=== PATIENT | male | born 1985 | race Caucasian/White ===

== ENCOUNTER 2016-05-24 03:05 | Inpatient (IN) | payer OTHER ==
[~2016-05-24] VITALS: Ht 175.3 cm; Wt 73.4 kg
[2016-05-24] VITALS (30 sets, daily range): BP systolic 78–164; BP diastolic 42–108; PULSE 75–130; TEMP 36.5–36.9; O2SAT 94–100; Ht 175.3 cm; Wt 73.4 kg
[~2016-05-24 03:05] MED LIST: CETI10TA84 PO; FLNIN; LEVO-459 PO; PRT40 PO; SALM50AE2 INH
[2016-05-24] MEDS ORDERED: SODIUM CHLORIDE 0.9% 1000ML 1,000 ML IV STA ×2 (03:17)
[2016-05-24] MEDS ORDERED: MAGNESIUM SULFATE 1GM / D5W 1 GM BAG IV STA (03:20)
[2016-05-24] MEDS ORDERED: MIDAZOLAM HCL 5 MG/ML 1 ML VIAL IV STA (03:20)
[2016-05-24] MEDS ORDERED: PROPOFOL IV EMULSION 10 MG/ML 100 ML VIAL IV ONE (03:26)
[2016-05-24 03:31] LABS: ISTAT CREATININE 1.5 mg/dl (0.6-1.3); ISTAT IONIZED CALCIUM 1.18 mmol/l (1.12-1.32)
--- NOTE | 2016-05-24 03:32 | EMERGENCY ROOM VISIT NOTE ---
History Report prepared by Trish: Mirta Antoine Under the Supervision of: Dr. Manisha Novoa D.O. First contact with patient: 03:07 Chief Complaint: RESPIRATORY DISTRESS Stated Complaint: RESPIRATORY History of Present Illness The patient is a 30 year old male who presents to the Emergency Room with complaints of respiratory distress starting ACCOUNTING GENERALIST. According to EMS the patient called for EMS assistance for himself and told EMS he has severe asthma and he was found to be alone in his apartment in [facility]. The patient informed the EMS personal that he was an asthmatic before becoming unresponsive. HPI limited due to unresponsive state. Source of History: EMS History Limited By: other (respiratory arrest) Onset: ACCOUNTING GENERALIST Position: other (respiratory) Review of Systems ROS limited due to unresponsive state. Past Medical & Surgical Medical Problems: (1) Acute respiratory failure requiring reintubation Family History No pertinent family history stated. Social History Housing Status: lives alone Current/Historical Medications Unable to Obtain Active Prescriptions or Reported Meds Allergies Coded Allergies: Unobtainable (Verified Allergy, Unknown, ., 05/24/16) Physical Exam Vital Signs Date Time Temp Pulse Resp B/P Pulse Ox O2 Delivery O2 Flow Rate FiO2 05/24/16 04:38 180/134 05/24/16 04:30 123 100 05/24/16 04:28 187/116 05/24/16 04:20 130 100 05/24/16 04:18 168/127 05/24/16 04:14 163/124 05/24/16 04:10 124 100 05/24/16 04:05 117 18 100 Mechanical Ventilator 05/24/16 04:03 60 05/24/16 04:02 120/110 05/24/16 03:59 05/24/16 03:55 114 18 99 Mechanical Ventilator 05/24/16 03:48 105/75 05/24/16 03:45 118 18 99 Mechanical Ventilator 05/24/16 03:44 115/79 05/24/16 03:39 136/100 05/24/16 03:35 119 97 05/24/16 03:29 144/91 05/24/16 03:27 127/90 05/24/16 03:25 118 97 05/24/16 03:24 106 05/24/16 03:20 100 05/24/16 03:18 156/104 05/24/16 03:17 159/105 05/24/16 03:15 104 97 Mechanical Ventilator 05/24/16 03:11 64 05/24/16 03:09 95 05/24/16 03:07 174/117 05/24/16 03:06 37.1 Physical Exam General: Patient is in severe respiratory distress, unresponsive with audible wheezing. HEENT: Head - normocephalic and atraumatic Pupils are equal, round, and reactive to light. Extraocular eye muscles are intact, and sclera are anicteric. Nose - moist nasal mucosa without discharge. Mouth - moist buccal mucosa. Neck: Supple; no JVD, nuchal rigidity, cervical lymphadenopathy, or auscultated bruits. Heart: Regular rate and rhythm. There is a normal S1 and S2 with no murmurs, clicks, or gallops appreciated. Lungs: inspiratory and expiratory wheezing with very little air movement. Abdomen: Soft, completely nontender, nondistended, with good bowel sounds. There are no palpable pulsatile masses or hepatosplenomegaly. There is no guarding, rigidity, or rebound noted. Extremities: No evidence of cyanosis, clubbing, or edema. There are easily palpable peripheral pulses. Skin: warm and diaphoretic with good turgor and no rashes. Medical Decision & Procedures ER Provider Diagnostic Interpretation: Chest x-ray: Lung alvarado appear clear. Endotracheal tube is 3 cm above the jay. There is no cardiomegaly. Laboratory Results 05/24/16 03:10 Red Blood Count 5.25, Mean Corpuscular Volume 95.2, Mean Corpuscular Hemoglobin 32.8, Mean Corpuscular Hemoglobin Concent 34.4, Mean Platelet Volume 10.2, Neutrophils (%) (Auto) 35.8, Lymphocytes (%) (Auto) 34.2, Monocytes (%) (Auto) 6.7, Eosinophils (%) (Auto) 22.2, Basophils (%) (Auto) 0.8, Neutrophils # (Auto ) 5.92, Lymphocytes # (Auto) 5.65, Monocytes # (Auto) 1.10, Eosinophils # (Auto ) 3.68, Basophils # (Auto) 0.14 05/24/16 03:10 Test 05/24/16 00:00 05/24/16 03:10 05/24/16 03:14 05/24/16 03:15 Influenza Type A Antigen Neg for Influ A (NEG) Influenza Type B Antigen Neg for Influ B (NEG) White Blood Count 16.54 K/uL (4.8-10.8) Red Blood Count 5.25 M/uL (4.7-6.1) Hemoglobin 17.2 g/dL (14.0-18.0) Hematocrit 50.0 % (42-52) Mean Corpuscular Volume 95.2 fL (80-100) Mean Corpuscular Hemoglobin 32.8 pg (25-34) Mean Corpuscular Hemoglobin Concent 34.4 g/dl (32-36) Platelet Count 401 K/uL (130-400) Mean Platelet Volume 10.2 fL (7.4-10.4) Neutrophils (%) (Auto) 35.8 % Lymphocytes (%) (Auto) 34.2 % Monocytes (%) (Auto) 6.7 % Eosinophils (%) (Auto) 22.2 % Basophils (%) (Auto) 0.8 % Neutrophils # (Auto) 5.92 K/uL (1.4-6.5) Lymphocytes # (Auto) 5.65 K/uL (1.2-3.4) Monocytes # (Auto) 1.10 K/uL (0.11-0.59) Eosinophils # (Auto) 3.68 K/uL (0-0.5) Basophils # (Auto) 0.14 K/uL (0-0.2) RDW Standard Deviation 44.4 fL (36.4-46.3) RDW Coefficient of Variation 12.9 % (11.5-14.5) Immature Granulocyte % (Auto) 0.3 % Immature Granulocyte # (Auto) 0.05 K/uL (0.00-0.02) Spherocytes OCCASIONAL Est Creatinine Clear Calc Drug Dose 60.9 ml/min Estimated GFR () 60.9 Estimated GFR (Non- 52.6 BUN/Creatinine Ratio 7.2 (10-20) Calcium Level 8.0 mg/dl (8.5-10.1) Total Bilirubin 0.3 mg/dl (0.2-1) Direct Bilirubin mg/dl (0-0.2) Aspartate Amino Transf (AST/SGOT) 30 U/L (15-37) Alanine Aminotransferase (ALT/SGPT) 37 U/L (12-78) Alkaline Phosphatase 60 U/L (45-117) Total Creatine Kinase 345 U/L (39-308) Total Protein 6.0 gm/dl (6.4-8.2) Albumin 3.5 gm/dl (3.4-5.0) Chemistry Specimen Hemolysis Bedside Hemoglobin 17.0 g/dl (14.0-18.0) Bedside Hematocrit 50 % (42-52) Bedside Sodium 143 mEq/L (135-144) Bedside Potassium 4.1 mEq/L (3.3-5.0) Bedside Chloride 100 mEq/L (101-112) Bedside Total CO2 30 mEq/l (24-31) Anion Gap 18.0 mmol/L (16-25) Bedside Blood Urea Nitrogen 15 mg/dl (7-18) Bedside Creatinine 1.5 mg/dl (0.6-1.3) Bedside Glucose (other) 256 mg/dl (70-99) Bedside Ionized Calcium (Amanda) 1.18 mmol/l (1.12-1.32) Arterial Blood pH 7.03 (7.35-7.45) Arterial Blood Partial Pressure CO2 112 mmHg (35-46) Arterial Blood Partial Pressure O2 224 mmHg (80-95) Arterial Blood HCO3 29 mmol/L (19-24) Arterial Blood Oxygen Saturation 99.0 % (90-95) Arterial Blood Base Excess -5.6 mEq/L (-9-1.8) Arterial Blood Gas Delivery Zackery Test POS (POS) Test 05/24/16 03:25 Urine Color YELLOW Urine Appearance CLEAR (CLEAR) Urine pH 5.5 (4.5-7.5) Urine Specific [place] 1.013 (1.000-1.030) Urine Protein 1+ (NEG) Urine Glucose (UA) 2+ (NEG) Urine Ketones NEG (NEG) Urine Occult Blood 1+ (NEG) Urine Nitrite NEG (NEG) Urine Bilirubin NEG (NEG) Urine Urobilinogen NEG (NEG) Urine Leukocyte Esterase NEG (NEG) Urine WBC (Auto) /hpf (0-5) Urine RBC (Auto) /hpf (0-4) Urine Hyaline Casts (Auto) 1-5 /lpf (0-5) Urine Epithelial Cells (Auto) /lpf (0-5) Urine Bacteria (Auto) (NEG) Urine RBC 5-10 /hpf (0-4) Urine WBC 0 /hpf (0-5) Urine Epithelial Cells 0-5 /lpf (0-5) Urine Bacteria NEG (NEG) Urine Opiates Screen NEG (NEG) Urine Methadone, Qualitative NEG (NEG) Urine Barbiturates NEG (NEG) Urine Phencyclidine (PCP) Level NEG (NEG) Ur Amphetamine/Methamphetamine NEG (NEG) MDMA (Ecstasy) Screen NEG (NEG) Urine Benzodiazepines Screen POS (NEG) Urine Cocaine Metabolite NEG (NEG) Urine Marijuana (THC) POS (NEG) Laboratory results per my review. Medications Administered Medications (Trade) Dose Ordered Sig/Marissa Route Start Time Stop Time Status Last Admin Dose Admin Sodium Chloride 1,000 ml @ 250 mls/hr Q4H STAT IV 05/24/16 03:17 05/24/16 06:10 DC 05/24/16 03:30 250 MLS/HR Sodium Chloride (Nss 1000ml) 1,000 ml @ 999 mls/hr Q1H1M STAT IV 05/24/16 03:17 05/24/16 04:17 DC 05/24/16 03:30 999 MLS/HR Magnesium Sulfate (Magnesium Sulfate) 2 gm NOW STAT IV 05/24/16 03:20 05/24/16 03:21 DC 05/24/16 03:15 2 GM Midazolam HCl (Versed Inj) 5 mg NOW STAT IV 05/24/16 03:20 05/24/16 03:21 DC 05/24/16 03:14 5 MG Propofol (Diprivan IV 100ML VIAL) 1 dose STK-MED ONCE IV 05/24/16 03:26 05/24/16 03:27 DC 05/24/16 03:27 1 DOSE Procedure Endotracheal Intubation Indication respiratory failure. The patient was on 100% oxygen via BVM prior to the procedure. Suction, airway equipment, RSI drugs, respiratory equipment, and appropriate personnel were prepared prior to the initiation of the procedure. A time out was taken. Induction was performed with 20 ml etomidate and 140 succs. After observing the clinical benefit of the medications, the airway was easily visualized utilizing a GlideScope. A 7.5 size ETT tube was placed atraumatically to 23 cm using standard technique. The cuff inflated without signs of malfunction. There were bilateral breath sounds, positive colormetric change, no gastric sounds, and post procedure pulse oximetry was 98%. Post intubation sedation was administered using 5 mg versed. There were no complications. Medications Administered: Epi 1:100,000 Sodium Chloride Versed Inj Magnesium Sulfate Propofol Vecuronium ED Course 0306: Past medical records reviewed. The patient had never been here before. The patient was evaluated in room A1. A complete history and physical exam was performed. A second IV lock was initiated. Intubation equipment was prepared and RSI drugs were obtained. The patient was given etomidate and succinylcholine to facilitate intubation. X-ray was obtained in the room and visualized the endotracheal tube as 3 cm above the jay and then it was advanced 1 cm. 0317: Ordered Sodium Chloride 1,000 ml @ 999 mls/hr IV, Sodium Chloride 1,000 ml @ 250 mls/hr IV. One mL of Epi 1:100,000 was given IV. 0320: Ordered Versed Inj 5mg IV, Magnesium Sulfate 2 gm IV the patient was given a second mL of Epi 1:100,000. A Mora catheter was placed and an OG tube was placed. 0326: Ordered Diprivan IV 100 ml Vital 1 dose IV. A third dose of Epi 100,000 IV was given 0342: I reevaluated the patient and he is starting to wake up on a propofol drip. The patient was given an additional 5 mg of IV Versed. The propofol drip was increased. 0348: I discussed the case with Dr. Norris regarding the treatment plan of the patient. The patient was still attempting to pull at the tube. He was given 10 mg of IV vecuronium. 0405: the patient was much more comfortable on the ventilator. Peak airway pressure was approximately 26 0420: I discussed the case with Dr. Boyd [facility] He agreed to evaluate the patient for further management and care. 0445: I reevaluated the patient and he was hemodynamically stable. Medical Decision The patient is a 30 year old male who presents to the ED with respiratory distress. Differential diagnosis includes pneumonia, bronchitis, asthma exacerbation, hypercarbic respiratory failure, pneumothorax. Lab: Glucose 256 White count 16.5 Hemoglobin 17.2 Hematocrit 50 Platelet count 401 BUN 12 Creatine 1.7 LFTs 264 Urine 1+ blood with 5-10 red blood cells Urine Tox positive for benzodiazepine and marijuana Influenza negative This is a 30-year-old male patient with a history of asthma who presents to the emergency department and respiratory failure. The patient had received DuoNeb treatments and IV solu Medrol from EMS. He became unresponsive and endotracheal intubation was attempted by the performance consultant with etomidate. This was unsuccessful as the patient was clenched down. The patient's O2 saturation for EMS was 81% with an end title CO2 of 84. Upon arrival in the emergency department, the patient had obvious respiratory failure. We were able to maintain O2 saturations of 98% with a [id number]. The patient was intubated and continued to receive DuoNeb through the in-line circuit. The patient received 2 g of IV magnesium. Once on the ventilator, the ABG was obtained and revealed severe hypercarbic respiratory failure with a pH of 7.02 and a PCO2 of 112. At that time, the patient's rate on ventilator was increased and FiO2 was decreased to 60%. The patient remains in stable. He was not adequately sedated with IV propofol initially. He had to receive IV Versed and IV vecuronium and the propofol rate was increased. I discussed the case with the national sales associate and Dr. Olivas. We were not able to identify any family members or friends to contact. Consults Time Called: 033 Consulting Physician: Dr. Norris Returned Call: [phone] I discussed the case with Dr. Norris regarding the treatment plan of the patient. Additional Consults: Time Called: 033 Consulted Physician: Dr. Boyd [facility] Returned Call: [phone] Additional Comments: I discussed the case with Dr. Oliver [facility] Hospitalist. He agreed to evaluate the patient for further management and care. Impression Primary Impression: Respiratory failure Additional Impression: Status asthmaticus Critical Care I have personally spent greater than 90 minutes of critical care time in the direct management of this patient. This includes bedside care, interpretation of diagnostic studies, and testing, discussion with consultants, patient, and family members, and other required patient management activities. This 90 minutes is in excess of all separately billable procedures. Scribe Attestation The scribe's documentation has been prepared under my direction and personally reviewed by me in its entirety. I confirm that the note above accurately reflects all work, treatment, procedures, and medical decision making performed by me. Departure Information Dispostion Being Evaluated By Hospitalist Prescriptions Unable to Obtain Active Prescriptions or Reported Meds
[2016-05-24 03:35] LABS: MEAN CELL VOLUME 95.2 fL (80-100); MEAN CORPUSCULAR HEMOGLOBIN 32.8 pg (25-34); MEAN CORPUSCULAR HGB CONC 34.4 g/dl (32-36); MEAN PLATELET VOLUME 10.2 fL (7.4-10.4); PLATELET COUNT 401 K/uL (130-400); RED BLOOD COUNT 5.25 M/uL (4.7-6.1); WHITE BLOOD COUNT 16.54 K/uL (4.8-10.8)
[2016-05-24 03:40] LABS: ARTERIAL BLOOD GAS BASE EXCESS -5.6 mEq/L (-9-1.8); ARTERIAL BLOOD GAS HCO3 29 mmol/L (19-24); ARTERIAL BLOOD GAS PO2 224 mmHg (80-95); ARTERIAL BLOOD GAS pH 7.03 (7.35-7.45)
[2016-05-24 03:53] LABS: ALLEN TEST POS (POS)
[2016-05-24 04:07] LABS: ALKALINE PHOSPHATASE 60 U/L (45-117); ALT/SGPT 37 U/L (12-78); BLOOD UREA NITROGEN 12 mg/dl (7-18); BUN/CREATININE RATIO 7.2 (10-20); CARBON DIOXIDE 30 mmol/L (21-32); CHLORIDE 105 mmol/L (98-107); GLUCOSE 264 mg/dl (70-99); SODIUM 144 mmol/L (136-145)
[2016-05-24 04:18] LABS: BASO % 0.8 %; BASO ABS # 0.14 K/uL (0-0.2); COMPLETE YES; EOS % 22.2 %; IG% 0.3 %; LYMPH % 34.2 %; LYMPH ABS # 5.65 K/uL (1.2-3.4); MONO % 6.7 %; NEUT % 35.8 %; SPHEROCYTE OCCASIONAL
[2016-05-24 04:39] LABS: AST/SGOT 30 U/L (15-37)
[2016-05-24 04:43] LABS: URINE APPEARANCE CLEAR (CLEAR); URINE BILIRUBIN NEG (NEG); URINE COLOR YELLOW; URINE NITRITE NEG (NEG); URINE PH 5.5 (4.5-7.5); URINE SPECIFIC GRAVITY 1.013 (1.000-1.030); UROBILINOGEN NEG (NEG)
[2016-05-24 04:45] LABS: MANUAL MICROSCOPIC REQUIRED? YES; REVIEW REQ? NO
[2016-05-24] MEDS ORDERED: MIDAZOLAM 125MG/250ML D5W 250 ML IV PRN (04:49)
[2016-05-24] MEDS ORDERED: NSS + 20MEQ KCL 1000ML 1,000 ML IV SCH (04:49)
[2016-05-24] MEDS ORDERED: PROPOFOL IV EMULSION 10 MG/ML 100 ML VIAL IV STA (04:49)
[2016-05-24 04:57] LABS: URINE BACTERIA NEG (NEG); URINE WBC 0 /hpf (0-5)
[2016-05-24 04:59] LABS: BENZODIAZEPINE, URINE POS (NEG); COCAINE,URINE NEG (NEG); PHENCYCLIDINE, URINE NEG (NEG)
[2016-05-24] MEDS ORDERED: METHYLPREDNISOLONE IV 40 MG in SYRINGE 0 ML IV SCH (05:00)
[2016-05-24] MEDS ORDERED: LORAZEPAM 2 MG/ML 1 ML VIAL IV PRN (05:00)
[2016-05-24] MEDS ORDERED: MoRPHine SULFATE 4 MG/ML 1 ML CARP\\VIAL IV PRN (05:00)
[2016-05-24] MEDS ORDERED: METHYLPREDNISOLONE IV 60 MG in SYRINGE 0 ML IV SCH ×2 (05:00→06:30)
[2016-05-24] MEDS ORDERED: MoRPHine SULFATE 2 MG/ML CARP IV PRN (05:00)
[2016-05-24] MEDS ORDERED: PREMIXED IN D5W 100 ML IV SCH (05:00)
[2016-05-24] MEDS ORDERED: MIDAZOLAM 125MG/250ML D5W IV ONE (05:06)
[2016-05-24] MEDS ORDERED: ONDANSETRON INJ 2 MG/ML 2 ML VIAL IV PRN (05:15)
[2016-05-24] MEDS ORDERED: GLUCOSE 10 TABS/TUBE PO PRN (05:15)
[2016-05-24] MEDS ORDERED: LEVALBUTEROL 1.25MG/0.5ML NEB INH PRN (05:15)
[2016-05-24] MEDS ORDERED: GLUCOSE 40% GEL 15 GM TUBE PO PRN (05:15)
[2016-05-24] MEDS ORDERED: DEXTROSE 50% 50 ML SYR IV PRN (05:15)
[2016-05-24] MEDS ORDERED: IPRATROPIUM BROMIDE NEB SOLN 0.02% 2.5 ML VIAL INH PRN (05:15)
[2016-05-24] MEDS ORDERED: GLUCAGON FOR INJ 1 MG VIAL SQ PRN (05:15)
[2016-05-24] MEDS ORDERED: FENTANYL CITRATE INJ 50 MCG/1 ML 2 ML VIAL ONE (05:24)
[2016-05-24] MEDS ORDERED: [UNRECOGNIZED DRUG - OTHER] IV STA (05:24)
[2016-05-24] MEDS ORDERED: DRIP IV STA (05:24)
[2016-05-24] MEDS ORDERED: FENTANYL 1250MCG/250ML NSS 250 ML IV SCH (05:30)
[2016-05-24 06:04] LABS: ISTAT ALLEN TEST Pass; ISTAT ARTERIAL BLOOD GAS HCO3 27 meq/L (19-24); ISTAT ARTERIAL BLOOD GAS PCO2 59 mmHg (35-46); ISTAT ARTERIAL BLOOD GAS PO2 197 mmHg (80-95); ISTAT ARTERIAL BLOOD GAS pH 7.25 (7.35-7.45); ISTAT CARBON DIOXIDE 28 mEq/l (24-31); ISTAT DELIVERY SYSTEM Ventilator; ISTAT FIO2 60 %; ISTAT PEEP 5; ISTAT RATE 14; ISTAT SITE R Radial; VE 8; Vt 500
[2016-05-24] MEDS ORDERED: NSS IV PRN (06:15)
[2016-05-24] MEDS ORDERED: VECURONIUM BROMIDE IV PRN (06:15)
[2016-05-24] MEDS ORDERED: VECURONIUM BROMIDE IV ONE ×2 (06:15→10:15)
[2016-05-24] MEDS ORDERED: PATIENT'S ALLERGY INFO NEEDS ENTERED SCH ×2 (06:15→08:00)
--- NOTE | 2016-05-24 06:19 | History and Physical ---
History & Physical Date & Time of Service: May 24, 2016 at 05:58 Chief Complaint: Respiratory Primary Care Physician: No Doctor, Assigned History of Present Illness Source: patient, EMS The patient is a 30-year-old male who presents emergency department with respiratory distress that began prior to arrival. EMS reports the patient called for assistance himself, told EMS he has severe asthma before he became unresponsive when found alone in his apartment in [facility] His history of present illness is severely limited due to his unresponsive state, and was intubated in the emergency department Social History Smoking Status: Unknown if Ever Smoked Smokeless Tobacco Use: No Drug Use: marijuana Marital Status: single Housing status: lives alone Home Medications Unable to Obtain Active Prescriptions or Reported Meds Review of Systems His review of systems is not able to be done due to unresponsive state and intubation. Physical Exam Vital Signs Date Time Temp Pulse Resp B/P Pulse Ox O2 Delivery O2 Flow Rate FiO2 05/24/16 04:49 37.1 124 18 180/134 99 05/24/16 04:40 124 18 99 Mechanical Ventilator 60 05/24/16 04:38 180/134 05/24/16 04:30 123 100 05/24/16 04:28 187/116 05/24/16 04:20 130 100 05/24/16 04:18 168/127 05/24/16 04:14 163/124 05/24/16 04:10 124 100 05/24/16 04:05 117 18 100 Mechanical Ventilator 05/24/16 04:03 60 05/24/16 04:02 120/110 05/24/16 03:59 05/24/16 03:55 114 18 99 Mechanical Ventilator 05/24/16 03:48 105/75 05/24/16 03:45 118 18 99 Mechanical Ventilator 05/24/16 03:44 115/79 05/24/16 03:39 136/100 05/24/16 03:35 119 97 05/24/16 03:29 144/91 05/24/16 03:27 127/90 05/24/16 03:25 118 97 05/24/16 03:24 106 05/24/16 03:20 100 05/24/16 03:18 156/104 05/24/16 03:17 159/105 05/24/16 03:15 104 97 Mechanical Ventilator 05/24/16 03:11 64 05/24/16 03:09 95 05/24/16 03:07 174/117 05/24/16 03:06 37.1 The patient is sedated, intubated and paralyzed. HEENT--PERRL, mucous membranes and oropharynx dry. Neck--supple, no JVD or bruits, thyroid normal, trachea midline, no adenopathy. Heart--normal S1 and S2, tachycardic post epinephrine, no extra beats, no murmurs, rubs or gallops. Lungs--clear bilaterally. Abdomen--normal bowel sounds and soft, nondistended, no hernias or masses, no organomegaly. Extremities--no cyanosis, clubbing or edema. There are good distal pulses b/l. Dermatologic--normal skin turgor, normal color, warm and dry, no abnormal lymph nodes, no rash. Neurologic--deferred due to intubation, sedation and paralysis. Rheumatologic--deferred Psychiatric--deferred Diagnostics Laboratory Results Results Past 24 Hours Test 05/24/16 00:00 05/24/16 03:10 05/24/16 03:14 05/24/16 03:15 Range/Units Influenza Type A Antigen Neg for Influ A NEG Influenza Type B Antigen Neg for Influ B NEG White Blood Count 16.54 4.8-10.8 K/uL Red Blood Count 5.25 4.7-6.1 M/uL Hemoglobin 17.2 14.0-18.0 g/dL Hematocrit 50.0 42-52 % Mean Corpuscular Volume 95.2 80-100 fL Mean Corpuscular Hemoglobin 32.8 25-34 pg Mean Corpuscular Hemoglobin Concent 34.4 32-36 g/dl Platelet Count 401 130-400 K/uL Mean Platelet Volume 10.2 7.4-10.4 fL Neutrophils (%) (Auto) 35.8 % Lymphocytes (%) (Auto) 34.2 % Monocytes (%) (Auto) 6.7 % Eosinophils (%) (Auto) 22.2 % Basophils (%) (Auto) 0.8 % Neutrophils # (Auto) 5.92 1.4-6.5 K/uL Lymphocytes # (Auto) 5.65 1.2-3.4 K/uL Monocytes # (Auto) 1.10 0.11-0.59 K/uL Eosinophils # (Auto) 3.68 0-0.5 K/uL Basophils # (Auto) 0.14 0-0.2 K/uL RDW Standard Deviation 44.4 36.4-46.3 fL RDW Coefficient of Variation 12.9 11.5-14.5 % Immature Granulocyte % (Auto) 0.3 % Immature Granulocyte # (Auto) 0.05 0.00-0.02 K/uL Spherocytes OCCASIONAL Sodium Level 144 136-145 mmol/L Potassium Level 4.0 3.5-5.1 mmol/L Chloride Level 105 98-107 mmol/L Carbon Dioxide Level 30 21-32 mmol/L Anion Gap 9.0 18.0 16-25 mmol/L Blood Urea Nitrogen 12 7-18 mg/dl Creatinine 1.70 0.60-1.40 mg/dl Est Creatinine Clear Calc Drug Dose 60.9 ml/min Estimated GFR () 60.9 Estimated GFR (Non- 52.6 BUN/Creatinine Ratio 7.2 10-20 Random Glucose 264 70-99 mg/dl Calcium Level 8.0 8.5-10.1 mg/dl Total Bilirubin 0.3 0.2-1 mg/dl Direct Bilirubin 0-0.2 mg/dl Aspartate Amino Transf (AST/SGOT) 30 15-37 U/L Alanine Aminotransferase (ALT/SGPT) 37 12-78 U/L Alkaline Phosphatase 60 45-117 U/L Total Creatine Kinase 345 39-308 U/L Total Protein 6.0 6.4-8.2 gm/dl Albumin 3.5 3.4-5.0 gm/dl Chemistry Specimen Hemolysis Bedside Hemoglobin 17.0 14.0-18.0 g/dl Bedside Hematocrit 50 42-52 % Bedside Sodium 143 135-144 mEq/L Bedside Potassium 4.1 3.3-5.0 mEq/L Bedside Chloride 100 101-112 mEq/L Bedside Total CO2 30 24-31 mEq/l Bedside Blood Urea Nitrogen 15 7-18 mg/dl Bedside Creatinine 1.5 0.6-1.3 mg/dl Bedside Glucose (other) 256 70-99 mg/dl Bedside Ionized Calcium (Amanda) 1.18 1.12-1.32 mmol/l Arterial Blood pH 7.03 7.35-7.45 Arterial Blood Partial Pressure CO2 112 35-46 mmHg Arterial Blood Partial Pressure O2 224 80-95 mmHg Arterial Blood HCO3 29 19-24 mmol/L Arterial Blood Oxygen Saturation 99.0 90-95 % Arterial Blood Base Excess -5.6 -9-1.8 mEq/L Arterial Blood Gas Delivery Zackery Test POS POS Test 05/24/16 03:25 Range/Units Urine Color YELLOW Urine Appearance CLEAR CLEAR Urine pH 5.5 4.5-7.5 Urine Specific [place] 1.013 1.000-1.030 Urine Protein 1+ NEG Urine Glucose (UA) 2+ NEG Urine Ketones NEG NEG Urine Occult Blood 1+ NEG Urine Nitrite NEG NEG Urine Bilirubin NEG NEG Urine Urobilinogen NEG NEG Urine Leukocyte Esterase NEG NEG Urine WBC (Auto) 0-5 /hpf Urine RBC (Auto) 0-4 /hpf Urine Hyaline Casts (Auto) 1-5 0-5 /lpf Urine Epithelial Cells (Auto) 0-5 /lpf Urine Bacteria (Auto) NEG Urine RBC 5-10 0-4 /hpf Urine WBC 0 0-5 /hpf Urine Epithelial Cells 0-5 0-5 /lpf Urine Bacteria NEG NEG Urine Opiates Screen NEG NEG Urine Methadone, Qualitative NEG NEG Urine Barbiturates NEG NEG Urine Phencyclidine (PCP) Level NEG NEG Ur Amphetamine/Methamphetamine NEG NEG MDMA (Ecstasy) Screen NEG NEG Urine Benzodiazepines Screen POS NEG Urine Cocaine Metabolite NEG NEG Urine Marijuana (THC) POS NEG Microbiology Results 05/24/16 Blood Culture, Received Pending 05/24/16 Blood Culture, Received Pending Impression Assessment and Plan Acute respiratory failure with hypercarbia requiring intubation--the patient will be admitted to the ICU. Present vent settings are respiratory rate 14, tidal volume 500, FiO2 60%, and PEEP 5. Initial ABG showed pH of 7.02, PCO2 112, and PO2 242, with repeat pending on the above settings. Patient was given Solu-Medrol 125 mg IV in the field, and was given 3 rounds of epinephrine in the emergency department for acute asthma attack. Blood pressure was initially 80/40, but after epinephrine, his pulse has been in the low 130s, and blood pressure is 150s over low 100s. He was started on propofol infusion for sedation and vecuronium for paralysis while in the ED. The propofol infusion will be continued, Versed infusion was added. The patient had still become overactive, so in discussion with Dr. Norris, the bench precision assembler, vecuronium infusion was begun, and fentanyl infusion at 100 mcg per hour after a 100 mcg bolus as well. The patient will also be placed on Solu-Medrol 60 mg IV every 6 hours, ceftriaxone 1 g IV daily, levofloxacin 500 mg IV every 24 hours, and Xopenex with Atrovent nebulizers every 6 hours while awake every 2 hours when necessary. Renal insufficiency--creatinine on admission labs was 1.7. The patient has had received 1 L of normal saline in the emergency department and this will be continued at 150 ML's per hour. I've added a CK to laboratories to assess for possible rhabdomyolysis. Hyperglycemia--unknown if the patient is diabetic, this may be secondary to the Solu-Medrol he got en route. He'll be placed on Accu-Cheks before meals and at bedtime with NovoLog coverage, and may require long-acting Lantus insulin. Level of Care Critical Care Advanced Directives Existing Advance Directive: No Existing Living Will: No Existing Power of Laborer Landscape: No Resuscitation Status FULL RESUSCITATION VTE Prophylaxis VTE Risk Assessment Done? Y/N: Yes Risk Level: Moderate Given or contraindicated: Enoxaparin (Lovenox)SQ, SCD's
[2016-05-24] MEDS: SODIUM CHLORIDE 0.9% 1000ML 1,000 ML IV SCH ×3 (06:23→20:49)
[2016-05-24] MEDS ORDERED: INSULIN ASPART 100 UNITS/ML 3 ML PEN SC SCH (06:45)
[2016-05-24] MEDS ORDERED: NURSING VERBAL MED ORDER ONE ×2 (07:15→09:15)
[2016-05-24] MEDS: INSULIN ASPART 100 UNITS/ML 3 ML PEN SC SCH ×4 (07:29→23:21)
[2016-05-24] MEDS: CEFTRIAXONE SOD INJ 1 GM in DEXTROSE 5% ADD-VANTAGE 50ML 50 ML IV SCH (07:30)
[2016-05-24] MEDS ORDERED: VECURONIUM BROMIDE 10 MG VIAL IV ONE (08:02)
[2016-05-24] MEDS ORDERED: ETOMIDATE 2 MG/ML 20 ML VIAL IV ONE (08:02)
[2016-05-24] MEDS ORDERED: SUCCINYLCHOLINE CHLORIDE 20 MG/ML 10 ML VIAL IV ONE (08:02)
[2016-05-24] MEDS ORDERED: MIDAZOLAM HCL 5 MG/ML 1 ML VIAL IV ONE (08:02)
[2016-05-24] MEDS ORDERED: PROPOFOL IV EMULSION 10 MG/ML 100 ML VIAL IV PRN (08:30)
[2016-05-24] MEDS ORDERED: LORAZEPAM 2 MG/ML 1 ML VIAL ONE (08:35)
[2016-05-24] MEDS ORDERED: PANTOprazole INJ 40 MG in SYRINGE 0 ML IV ONE (08:45)
--- NOTE | 2016-05-24 08:55 | DIAGNOSTIC IMAGING REPORT ---
SINGLE VIEW CHEST CLINICAL HISTORY: Respiratory failure and intubation. FINDINGS: An AP, portable, supine chest radiograph is obtained. No prior studies are available for comparison at the time of dictation. The examination is degraded by portable technique, apical lordotic positioning, and motion artifact. An endotracheal tube has been placed. The tip of the catheter projects 5.5 cm above the jay. The cardiomediastinal silhouette is unremarkable. The lungs appear hyperinflated. There is nonspecific interstitial thickening. No airspace consolidation, pleural effusion, or pneumothorax is seen. There is a healed left posterior rib fracture. IMPRESSION: 1. An endotracheal tube has been placed. The tip of the catheter projects 5.5 cm above the jay. 2. The lungs appear clear. Electronically signed by: Willy Skelton M.D. 05/24/2016 8:53 AM
[2016-05-24] MEDS ORDERED: PANTOprazole INJ 40 MG in SYRINGE 0 ML IV SCH ×3 (09:00→21:00)
[2016-05-24] MEDS ORDERED: IPRATROPIUM BROMIDE NEB SOLN 0.02% 2.5 ML VIAL INH SCH (09:00)
[2016-05-24] MEDS ORDERED: LEVALBUTEROL/IPRATROPIUM NEB INH SCH (09:00)
[2016-05-24] MEDS ORDERED: LEVALBUTEROL 1.25MG/0.5ML NEB INH SCH (09:00)
[2016-05-24 09:20] LABS: ISTAT ALLEN TEST Pass; ISTAT ARTERIAL BLOOD GAS HCO3 24 meq/L (19-24); ISTAT ARTERIAL BLOOD GAS PCO2 52 mmHg (35-46); ISTAT ARTERIAL BLOOD GAS PO2 237 mmHg (80-95); ISTAT ARTERIAL BLOOD GAS pH 7.27 (7.35-7.45); ISTAT CARBON DIOXIDE 25 mEq/l (24-31); ISTAT DELIVERY SYSTEM Ventilator; ISTAT FIO2 60 %; ISTAT PEEP 5; ISTAT RATE 14; ISTAT SITE R Radial; Vt 500
[2016-05-24] MEDS ORDERED: LABETALOL HCL IV 5 MG/ML 20ML IV PRN (09:30)
[2016-05-24 09:51] LABS: PROTHROMBIN TIME (PATIENT) 10.7 SECONDS (9.0-12.0)
[2016-05-24 09:53] LABS: BUN/CREATININE RATIO 8.6 (10-20); CALCIUM 7.6 mg/dl (8.5-10.1); CREATININE 1.6 mg/dl (0.60-1.40); MAGNESIUM 2.4 mg/dl (1.8-2.4); POTASSIUM 4.3 mmol/L (3.5-5.1)
[2016-05-24 10:00] LABS: PHOSPHORUS 1.9 mg/dl (2.5-4.9)
[2016-05-24] MEDS ORDERED: PANTOprazole INJ 40 MG in DEXTROSE 5% 100ML 100 ML IV SCH (10:00)
[2016-05-24] MEDS ORDERED: VECURONIUM BROMIDE 10 MG VIAL IV SCH (10:30)
[2016-05-24 10:50] LABS: GASTRIC OCCULT BLOOD POS (NEG); GASTRIC OCCULT BLOOD PH 2
--- NOTE | 2016-05-24 10:53 | CRITICAL CARE CONSULTATION ---
DATE OF CONSULTATION: 05/24/2016 CHIEF COMPLAINT: Shortness of breath. HISTORY OF PRESENT ILLNESS: The patient is a 30-year-old gentleman who has not been to our institution before. He is presently on a ventilator and I am unable to get any history from him. He reportedly called 911 secondary to shortness of breath, and when EMS arrived, he may have told them that he has severe asthma. He lives alone in an apartment in [place]. I presume he was poorly responsive, as there was an attempt to intubate by EMS, which was unsuccessful. He was taken to the Emergency Department where Dr. Novoa gave him etomidate and succinylcholine prior to intubation. His initial blood gas showed pH 7.03, pCO2 of 112, pO2 of 224, HCO3 of 29. In the Emergency Department, he was given a liter bolus of saline and started on 250 mL per hour. He was given 1 mL of epinephrine 1:100,000 IV. He was given 5 mg of Versed, 2 mg of magnesium and a second mL of epinephrine to be followed by a third. He was started on propofol and eventually required 10 mg of vecuronium. He was then transferred to the intensive care unit. He is now on propofol and Versed infusions. He was started on a fentanyl infusion as well. PAST MEDICAL HISTORY: Unknown. PAST SURGICAL HISTORY: Unknown. ALLERGIES: Unknown. MEDICATIONS: Unknown. SOCIAL HISTORY: Unknown. FAMILY HISTORY: Unknown. REVIEW OF SYSTEMS: Not obtainable. PHYSICAL EXAMINATION: VITAL SIGNS: Temperature 36.5, heart rate 130, respiratory rate 18-38, blood pressure 160-180/130s, oxygen saturation 99% on assist control, rate 14, tidal volume 500, FIO2 60%, PEEP 5. HEENT: Pupils are equally round and reactive to light. There is an orogastric tube and an endotracheal tube in place. NECK: No adenopathy, veins are flat. LUNGS: Coarse bilaterally. Sounds are distant. No rales, rhonchi or wheezes. HEART: Tachycardic, regular, no murmurs. ABDOMEN: Flat, firm, nondistended, hypoactive bowel sounds. EXTREMITIES: Warm distal pulses, 2+ upper and lower extremities. No edema. SKIN: Multiple scattered tattoos. NEUROLOGIC: When he is not sedated, he moves all 4 extremities, but without purpose. LABORATORIES: PH 7.25, pCO2 of 59, HCO3 of 27, O2 of 197. White blood cell count 16.54, hemoglobin 17, hematocrit 50, platelets 401, no left shift. PT/INR pending. Sodium 143, potassium 4.1, chloride 100, CO2 of 30, BUN 15, creatinine 1.5, blood sugar 256, ionized calcium 1.18. CPK 345. LFTs within normal limits. Albumin 3.5. Urinalysis, 5-10 red cells, 1-5 epithelial cells, 1+ blood, 2+ glucose. No ketones. Urine tox screen positive for benzodiazepines and marijuana. Influenza swab negative. Blood cultures have been drawn. Portable chest x-ray from this morning shows the endotracheal tube to be 5.5 cm above the jay and clear lungs. The tube was advanced in the Emergency Department. IMPRESSION: 1. Acute hypercapnic respiratory failure with report of shortness of breath and possible asthma. He is not wheezing presently. His oxygenation does not seem to be an issue. Suspect acute exacerbation of reactive airway disease. 2. Acute kidney injury, improving with volume. 3. Mildly elevated CPK. 4. Coffee ground looking material from his nasogastric tube, question gastrointestinal bleed. 5. Leukocytosis without left shift. 6. Hyperglycemia. 7. Microscopic hematuria. PLAN: NEUROLOGIC: Presently he is on fentanyl, Versed and propofol infusions. I would like to take his fentanyl up and see if we can get the Versed off. Consider Precedex. CT of the brain is pending. PULMONARY: This may be an asthma exacerbation, but there is so little history it is difficult to tell. He has been started on intravenous steroids, and is on bronchodilators. Chlorhexidine for VAP prophylaxis. Culture sputum if there is any. CT chest. CARDIOVASCULAR: He is hypertensive. I will order some labetalol and increasing his sedatives should help. GASTROINTESTINAL: Gastroccult NG tube drainage, Protonix 40 mg IV b.i.d. for now. Consider Protonix infusion. Follow blood counts. RENAL: Creatinine is trending down. Continue hydration and trend CPKs. INFECTIOUS DISEASE: He is on Rocephin and Levaquin for the time being. Blood cultures have been drawn. HEMATOLOGY: Provide DVT prophylaxis with subcutaneous heparin. Case management has been notified and we are trying to obtain more information about this man. Critical care time 40 minutes. [facility]
--- NOTE | 2016-05-24 10:57 | DIAGNOSTIC IMAGING REPORT ---
CT SCAN OF THE BRAIN WITHOUT IV CONTRAST CLINICAL HISTORY: Change in mental status. COMPARISON STUDY: No priors. TECHNIQUE: Unenhanced axial CT scan of the brain is performed from the vertex to the skull base. Automated dose control exposure was utilized. CT DOSE: 537.48 mGy.cm FINDINGS: An endotracheal tube is partially imaged on the lateral associate tomogram. Brain parenchyma: The brain parenchyma is normal in appearance. There is no hemorrhage, mass effect, or evidence of acute territorial ischemia by CT criteria. [place]-white matter is preserved. No extra-axial fluid collection is seen. Ventricles, sulci, cisterns: Normal in configuration. Intracranial vasculature: The visualized intracranial vasculature at the skull base is normal in appearance. Calvarium: Unremarkable. Sinuses and mastoids: Trace mucosal thickening is seen within the maxillary, sphenoid, and ethmoid sinuses. The mastoid air cells are well pneumatized. Orbits: The bony orbits are grossly intact. IMPRESSION: No acute intracranial abnormality. Electronically signed by: Willy Skelton M.D. 05/24/2016 10:54 AM
--- NOTE | 2016-05-24 11:08 | DIAGNOSTIC IMAGING REPORT ---
CT SCAN OF THE CHEST, ABDOMEN, AND PELVIS WITHOUT IV CONTRAST CLINICAL HISTORY: Respiratory failure. COMPARISON STUDY: Chest x-ray dated 05/24/2016. TECHNIQUE: CT scan of the chest, abdomen, and pelvis was performed from the thoracic inlet to the proximal femora. Images are reviewed in the axial, sagittal, and coronal planes. IV contrast was not administered as per the referring clinician. Note that the examination was performed in significantly suboptimal fashion without IV contrast. The examination is also degraded by streak artifact the patient's arms which could not be elevated above the chest or abdomen. Automated dose control exposure was utilized. CT DOSE: 776.23 mGy.cm FINDINGS: CHEST: Thyroid: Imaged portions of the thyroid gland are normal in size and attenuation. Thoracic aorta: The thoracic aorta is normal in course and caliber. The aortic arch demonstrates standard 3-vessel anatomy. Heart: The heart is normal in size and configuration, and without pericardial effusion. The pulmonary trunk is normal in caliber. Lungs and pleural spaces: Evaluation of the lung parenchyma is degraded by motion artifact. An endotracheal tube is in appropriate position. Secretions are noted in the trachea. There is no airspace consolidation or pleural effusion. Dependent atelectasis is present at both lung bases. Nonspecific peribronchial thickening is identified. No pneumothorax is seen. Mediastinum: There is no mediastinal lymphadenopathy. Nathaly: Not well assessed without IV contrast. Axillae: There is no axillary lymphadenopathy. Bony thorax: The bony thorax appears intact. No lytic or blastic lesions are identified. ABDOMEN AND PELVIS: Liver: Evaluation of the liver is significantly degraded by streak artifact. The unenhanced liver is normal in size, contour, and attenuation. There is no intrahepatic or ductal dilatation. Gallbladder: Unremarkable. Spleen: Normal in size and attenuation. Pancreas: Unremarkable. Adrenal glands: Unremarkable. Kidneys: The unenhanced kidneys are normal in size and without hydronephrosis. No renal calculi are identified. There is no evidence of contour deforming renal mass. Abdominal vasculature: The abdominal aorta is normal in course and caliber. Stomach and bowel: An enteric tube terminates in the mid stomach. The stomach and duodenum are normal in configuration. The small bowel and colon are normal in course and caliber. The appendix is normal as visualized. Peritoneum: There is no intraperitoneal free air or abdominal ascites. Lymphadenopathy: None. Pelvic viscera: The bladder is decompressed around a Omra catheter and not well evaluated. The prostate and seminal vesicles are normal as imaged. Skeletal structures: No lytic or blastic lesions are seen. IMPRESSION: 1. The examination is suboptimal without IV contrast. The examination is also degraded by motion and streak artifact. 2. Endotracheal and enteric tubes are in place. 3. No airspace consolidation or pleural effusion is identified. Mild diffuse peribronchial thickening suggests reactive airway disease. Clinical correlation will be required. 4. There are no acute infectious or inflammatory findings in the abdomen or pelvis. 5. The bladder is decompressed around a Mora catheter and not well assessed. Electronically signed by: Willy Skelton M.D. 05/24/2016 11:06 AM
[2016-05-24] MEDS: LEVOFLOXACIN / D5W 750 MG in PREMIXED IN D5W 150 ML IV SCH (11:16)
[2016-05-24] MEDS: PANTOprazole INJ 40 MG in DEXTROSE 5% 100ML IV SCH ×3 (11:16→20:49)
[2016-05-24] MEDS: ENOXAPARIN 40 MG/0.4 ML SYR SQ SCH (11:18)
[2016-05-24] MEDS: METHYLPREDNISOLONE IV 60 MG in SYRINGE 0 ML IV SCH ×3 (11:18→23:14)
[2016-05-24] MEDS: CHLORHEXIDINE GLUCONATE 0.12% 480 ML MT SCH ×2 (11:18→21:00)
--- NOTE | 2016-05-24 11:57 | Progress Note ---
Subjective Subjective Date of Service: May 24, 2016. Pt evaluation today including: physical exam, chart review, review of studies, review of inpatient medication list Notes: patient is sedated and intubated, ros can`t be obtained Problem List Medical Problems: (1) Respiratory failure Status: Acute (2) Status asthmaticus Status: Acute Physical Exam Vital Signs Vital Signs Past 24 Hours: Date Time Temp Pulse Resp B/P Pulse Ox O2 Delivery O2 Flow Rate FiO2 05/24/16 10:57 50 05/24/16 08:16 60 05/24/16 05:46 36.5 130 38 164/108 99 Mechanical Ventilator 60 05/24/16 04:49 37.1 124 18 180/134 99 05/24/16 04:40 124 18 99 Mechanical Ventilator 60 05/24/16 04:38 180/134 05/24/16 04:30 123 100 05/24/16 04:28 187/116 05/24/16 04:20 130 100 05/24/16 04:18 168/127 05/24/16 04:14 163/124 05/24/16 04:10 124 100 05/24/16 04:05 117 18 100 Mechanical Ventilator 05/24/16 04:03 60 05/24/16 04:02 120/110 05/24/16 03:59 05/24/16 03:55 114 18 99 Mechanical Ventilator 05/24/16 03:48 105/75 05/24/16 03:45 118 18 99 Mechanical Ventilator 05/24/16 03:44 115/79 05/24/16 03:39 136/100 05/24/16 03:35 119 97 05/24/16 03:29 144/91 05/24/16 03:27 127/90 05/24/16 03:25 118 97 05/24/16 03:24 106 05/24/16 03:20 100 05/24/16 03:18 156/104 05/24/16 03:17 159/105 05/24/16 03:15 104 97 Mechanical Ventilator 05/24/16 03:11 64 05/24/16 03:09 95 05/24/16 03:07 174/117 05/24/16 03:06 37.1 Physical Exam: General Appearance: no apparent distress ENT: + pertinent finding (endotrach tube in place) Neck: supple Cardiovascular: regular rate, rhythm, no gallop Abdomen: non tender Extremities: no pedal edema Neurologic/Psychiatric: + pertinent finding (sedated) Skin: normal color Comments: velasquez in place Medications Medications: Current Inpatient Medications Medications (Trade) Dose Ordered Sig/Marissa Route Start Time Stop Time Status Last Admin Dose Admin Enoxaparin Sodium (Lovenox Inj) 40 mg DAILY SQ 05/24/16 10:00 06/23/16 09:59 05/24/16 11:18 40 MG Morphine Sulfate (MoRPHine SULFATE INJ) 2 mg Q2H PRN IV 05/24/16 05:00 06/07/16 04:59 Morphine Sulfate 4 mg 4 mg Q2H PRN IV 05/24/16 05:00 06/07/16 04:59 Midazolam HCl 250 ml @ 0 mls/hr Q0M PRN IV 05/24/16 04:49 06/23/16 04:48 Ceftriaxone Sodium/Dextrose (Rocephin Inj/ Dextrose Add-Powersite 50ML) 50 ml @ 100 mls/hr Q24H IV 05/24/16 06:30 06/03/16 06:29 05/24/16 07:30 100 MLS/HR Ipratropium [place] (Atrovent 0.02% 0.5MG/2.5ML Neb) 0.5 mg Q6R INH 05/24/16 09:00 06/23/16 08:59 Ipratropium [place] (Atrovent 0.02% 0.5MG/2.5ML Neb) 0.5 mg Q2H PRN INH 05/24/16 05:15 06/23/16 05:14 Levalbuterol (Xopenex 1.25MG/ 0.5ML Neb) 1.25 mg Q2H PRN INH 05/24/16 05:15 06/23/16 05:14 Ondansetron HCl (Zofran Inj) 4 mg Q6H PRN IV 05/24/16 05:15 06/23/16 05:14 Glucose (Glucose 40% Gel) UD PRN PO 05/24/16 05:15 06/23/16 05:14 Glucose (Glucose Chew Tab) 1 tabs UD PRN PO 05/24/16 05:15 06/23/16 05:14 Dextrose (Dextrose 50% 50ML Syringe) 50 ml UD PRN IV 05/24/16 05:15 06/23/16 05:14 Glucagon 1 mg 1 mg UD PRN SQ 05/24/16 05:15 06/23/16 05:14 Sodium Chloride 1,000 ml @ 150 mls/hr Q6H40M IV 05/24/16 05:15 06/23/16 05:14 05/24/16 06:23 150 MLS/HR Fentanyl Citrate 250 ml @ 0 mls/hr Q0M IV 05/24/16 05:30 06/07/16 05:29 05/24/16 06:12 5 MLS/HR Vecuronium [place]/Sodium Chloride (Vecuronium [place] Inj/Nss 100ml) 100 ml @ 0 mls/hr Q0M PRN IV 05/24/16 06:15 06/23/16 06:14 Miscellaneous Information 1 ea 1 ea QS N/A 05/24/16 08:00 06/23/16 07:59 Methylprednisolone Sodium Succinate/ Syringe (Solu-Medrol IV/ Syringe) 0.96 ml @ 1.5 mls/min Q6H IV 05/24/16 11:00 06/23/16 10:59 05/24/16 11:18 1.5 MLS/MIN Insulin Aspart (novoLOG ASPART) SLIDING SCALE If C... Q6 SC 05/24/16 07:30 06/23/16 07:29 Propofol (Diprivan IV 100ML VIAL) 1 dose UD PRN IV 05/24/16 08:30 05/27/16 08:29 05/24/16 08:52 1 DOSE Chlorhexidine Gluconate 15 ml 15 ml BID MT 05/24/16 09:00 06/23/16 08:59 05/24/16 11:18 15 ML Levofloxacin/Prmx (Levaquin / D5w/ Premixed D5W) 150 ml @ 100 mls/hr DAILY IV 05/24/16 09:30 06/03/16 09:29 05/24/16 11:16 100 MLS/HR Labetalol HCl 20 mg 20 mg Q1H PRN IV 05/24/16 09:30 06/23/16 09:29 Pantoprazole Sodium/Dextrose (Protonix Inj/D5 100ml) 100 ml @ 20 mls/hr Q5H IV 05/24/16 10:30 06/23/16 10:29 05/24/16 11:16 20 MLS/HR Levalbuterol (Xopenex Hfa Inhaler) 4 puffs Q6R INH 05/24/16 15:00 06/23/16 14:59 UNV Ipratropium [place] (Atrovent Hfa Inhaler) 4 puffs Q6R INH 05/24/16 15:00 06/23/16 14:59 UNV Laboratory Data Labs: Last 24 Hours Test 05/24/16 00:00 05/24/16 03:10 05/24/16 03:14 05/24/16 03:15 Gastric Fluid pH 2 Gastric Fluid Occult Blood POS Influenza Type A Antigen Neg for Influ A Influenza Type B Antigen Neg for Influ B White Blood Count 16.54 K/uL Red Blood Count 5.25 M/uL Hemoglobin 17.2 g/dL Hematocrit 50.0 % Mean Corpuscular Volume 95.2 fL Mean Corpuscular Hemoglobin 32.8 pg Mean Corpuscular Hemoglobin Concent 34.4 g/dl Platelet Count 401 K/uL Mean Platelet Volume 10.2 fL Neutrophils (%) (Auto) 35.8 % Lymphocytes (%) (Auto) 34.2 % Monocytes (%) (Auto) 6.7 % Eosinophils (%) (Auto) 22.2 % Basophils (%) (Auto) 0.8 % Neutrophils # (Auto) 5.92 K/uL Lymphocytes # (Auto) 5.65 K/uL Monocytes # (Auto) 1.10 K/uL Eosinophils # (Auto) 3.68 K/uL Basophils # (Auto) 0.14 K/uL RDW Standard Deviation 44.4 fL RDW Coefficient of Variation 12.9 % Immature Granulocyte % (Auto) 0.3 % Immature Granulocyte # (Auto) 0.05 K/uL Spherocytes OCCASIONAL Sodium Level 144 mmol/L Potassium Level 4.0 mmol/L Chloride Level 105 mmol/L Carbon Dioxide Level 30 mmol/L Anion Gap 9.0 mmol/L 18.0 mmol/L Blood Urea Nitrogen 12 mg/dl Creatinine 1.70 mg/dl Est Creatinine Clear Calc Drug Dose 60.9 ml/min Estimated GFR () 60.9 Estimated GFR (Non- 52.6 BUN/Creatinine Ratio 7.2 Random Glucose 264 mg/dl Calcium Level 8.0 mg/dl Total Bilirubin 0.3 mg/dl Direct Bilirubin mg/dl Aspartate Amino Transf (AST/SGOT) 30 U/L Alanine Aminotransferase (ALT/SGPT) 37 U/L Alkaline Phosphatase 60 U/L Total Creatine Kinase 345 U/L Total Protein 6.0 gm/dl Albumin 3.5 gm/dl Chemistry Specimen Hemolysis Bedside Hemoglobin 17.0 g/dl Bedside Hematocrit 50 % Bedside Sodium 143 mEq/L Bedside Potassium 4.1 mEq/L Bedside Chloride 100 mEq/L Bedside Total CO2 30 mEq/l Bedside Blood Urea Nitrogen 15 mg/dl Bedside Creatinine 1.5 mg/dl Bedside Glucose (other) 256 mg/dl Bedside Ionized Calcium (Amanda) 1.18 mmol/l Arterial Blood pH 7.03 Arterial Blood Partial Pressure CO2 112 mmHg Arterial Blood Partial Pressure O2 224 mmHg Arterial Blood HCO3 29 mmol/L Arterial Blood Oxygen Saturation 99.0 % Arterial Blood Base Excess -5.6 mEq/L Arterial Blood Gas Delivery Zackery Test POS Test 05/24/16 03:25 05/24/16 05:50 05/24/16 08:51 05/24/16 09:05 Urine Color YELLOW Urine Appearance CLEAR Urine pH 5.5 Urine Specific [place] 1.013 Urine Protein 1+ Urine Glucose (UA) 2+ Urine Ketones NEG Urine Occult Blood 1+ Urine Nitrite NEG Urine Bilirubin NEG Urine Urobilinogen NEG Urine Leukocyte Esterase NEG Urine WBC (Auto) /hpf Urine RBC (Auto) /hpf Urine Hyaline Casts (Auto) 1-5 /lpf Urine Epithelial Cells (Auto) /lpf Urine Bacteria (Auto) Urine RBC 5-10 /hpf Urine WBC 0 /hpf Urine Epithelial Cells 0-5 /lpf Urine Bacteria NEG Urine Opiates Screen NEG Urine Methadone, Qualitative NEG Urine Barbiturates NEG Urine Phencyclidine (PCP) Level NEG Ur Amphetamine/Methamphetamine NEG MDMA (Ecstasy) Screen NEG Urine Benzodiazepines Screen POS Urine Cocaine Metabolite NEG Urine Marijuana (THC) POS Blood Gas Sample Site R Radial R Radial Bedside Blood Gas pH (LAB) 7.25 7.27 Bedside Blood Gas pCO2 (LAB) 59 mmHg 52 mmHg Bedside Blood Gas pO2 (LAB) 197 mmHg 237 mmHg Bedside Blood Gas HCO3 (LAB) 27 meq/L 24 meq/L Bedside Blood Gas Total CO2 28 mEq/l 25 mEq/l Bedside Blood Gas Base Excess (LAB) -1.0 meq/L -3.0 meq/L Bedside Blood Gas O2 Saturation 100.0 % 100.0 % Zackery Test Pass Pass Oxygen Delivery Device Ventilator Ventilator Bedside Oxygen Rate (breaths/min) 14 14 Blood Gas Minute Ventilation 8 Bedside FiO2 60 % 60 % Blood Gas Tidal Volume 500 500 Blood Gas PEEP 5 5 Prothrombin Time 10.7 SECONDS Prothromb Time International Ratio 1.0 Sodium Level 144 mmol/L Potassium Level 4.3 mmol/L Chloride Level 108 mmol/L Carbon Dioxide Level 24 mmol/L Anion Gap 12.0 mmol/L Blood Urea Nitrogen 14 mg/dl Creatinine 1.60 mg/dl Est Creatinine Clear Calc Drug Dose 66.9 ml/min Estimated GFR () 65.6 Estimated GFR (Non- 56.6 BUN/Creatinine Ratio 8.6 Random Glucose 138 mg/dl Calcium Level 7.6 mg/dl Phosphorus Level 1.9 mg/dl Magnesium Level 2.4 mg/dl Total Creatine Kinase 532 U/L Test 05/24/16 11:08 Hemoglobin 15.2 g/dL Hematocrit 43.0 % Assessment and Plan A 30 yo male comes with acute sob 1. Acute hypercapnic respiratory failure due to possible asthma. 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 continue IV Rocephin and Levaquin for while awaiting for Blood cultures results 2. Acute kidney injury, improved with IVF 3. Mildly elevated CPK, likely dehydration. 4. questionable upper gastrointestinal bleed? has NG tube with Coffee ground looking material 5. Hyperglycemia likely secondary to stress, but rule out diabetes check a1c DVT prophylaxis with subcutaneous heparin. icu time 35 min
[2016-05-24] MEDS ORDERED: POTASSIUM PHOS 3 MMOL/1 ML INFUSION IV STA (14:39)
[2016-05-24] MEDS ORDERED: LEValbuterol HFA 15GM INHALER INH SCH (15:00)
[2016-05-24] MEDS ORDERED: POTASSIUM PHOSPHATE INJ 15 MMOL in SODIUM CHLORIDE 0.9% 250ML 250 ML IV ONE (15:00)
[2016-05-24] MEDS ORDERED: IPRATROPIUM BROMIDE HFA INHALER INH SCH (15:00)
[2016-05-24 16:22] LABS: HEMATOCRIT 45.2 % (42-52)
--- NOTE | 2016-05-24 20:33 | Progress Note ---
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 He was placed on cpap 5/5 and self extubated this evening. No stridor and breathing comfortably on AFM. History gained from father via phone - he spoke to Shlomo yesterday and he noted that he sounded congested and was coughing. He reports "some kind of problem with the lining of his lung" and could not be more specific. Gets care at OR in [place]. Release of information sent to the OR to obtain recoreds. Dad does not think he has asthma. Says patient was in this institution - ICU - in 2013 or 2014 but I have not been able to find any record of that. 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 Denied other PMH, PSH. 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 Donates plasma "a few times per week" Sahil (father) [phone] Sharon (mom) [phone] Parents updated via phone regarding patient's status/extubation. Patient is adamant that he leave tomorrow because he's afraid he will lose his job(s). He' s very tearful. I encouraged him to stay for the remainder of the time needed to finish his treatment.
[2016-05-24] MEDS: IPRATROPIUM BROMIDE NEB SOLN 0.02% 2.5 ML VIAL INH SCH (20:36)
[2016-05-24] MEDS: LEVALBUTEROL 1.25MG/0.5ML NEB INH SCH (20:36)
[2016-05-24 22:17] LABS: HEMATOCRIT 41.7 % (42-52)
[2016-05-25 02:20] VITALS: PULSE 104; O2SAT 97
[2016-05-25] MEDS: LEVALBUTEROL 1.25MG/0.5ML NEB INH SCH ×2 (02:20→07:15)
[2016-05-25] MEDS: IPRATROPIUM BROMIDE NEB SOLN 0.02% 2.5 ML VIAL INH SCH ×2 (02:20→07:15)
[2016-05-25] MEDS: SODIUM CHLORIDE 0.9% 1000ML 1,000 ML IV SCH ×2 (03:12→07:29)
[2016-05-25] MEDS: PANTOprazole INJ 40 MG in DEXTROSE 5% 100ML IV SCH ×2 (03:12→07:28)
[2016-05-25 04:06] LABS: BASO % 0.1 %; BASO ABS # 0.01 K/uL (0-0.2); COMPLETE YES; IG% 0.3 %; LYMPH % 4.1 %; LYMPH ABS # 0.79 K/uL (1.2-3.4); MEAN CELL VOLUME 93.2 fL (80-100); MEAN CORPUSCULAR HEMOGLOBIN 32.3 pg (25-34); MEAN CORPUSCULAR HGB CONC 34.6 g/dl (32-36); MEAN PLATELET VOLUME 9.9 fL (7.4-10.4); MONO % 2.7 %; NEUT % 92.8 %; PLATELET COUNT 253 K/uL (130-400)
[2016-05-25 05:09] LABS: BUN/CREATININE RATIO 12.7 (10-20); CALCIUM 7.9 mg/dl (8.5-10.1); CREATININE 1.1 mg/dl (0.60-1.40)
[2016-05-25 05:12] LABS: PHOSPHORUS 2.1 mg/dl (2.5-4.9)
[2016-05-25] MEDS: METHYLPREDNISOLONE IV 60 MG in SYRINGE 0 ML IV SCH (05:37)
[2016-05-25] MEDS: INSULIN ASPART 100 UNITS/ML 3 ML PEN SC SCH (06:00)
[2016-05-25 06:01] LABS: MAGNESIUM 2.4 mg/dl (1.8-2.4)
[2016-05-25] MEDS: CEFTRIAXONE SOD INJ 1 GM in DEXTROSE 5% ADD-VANTAGE 50ML 50 ML IV SCH (06:38)
[2016-05-25 07:15] VITALS: PULSE 113; O2SAT 97
[2016-05-25] MEDS: LEVOFLOXACIN / D5W 750 MG in PREMIXED IN D5W 150 ML IV SCH (07:29)
[2016-05-25] MEDS: ENOXAPARIN 40 MG/0.4 ML SYR SQ SCH (07:30)
--- NOTE | 2016-05-25 07:32 | DIAGNOSTIC IMAGING REPORT ---
CHEST ONE VIEW PORTABLE HISTORY: Acute respiratory failure. COMPARISON: Chest 05/24/2016. FINDINGS: Endotracheal tube has been removed. The lungs are clear. The lungs are hyperexpanded. The heart is normal in size. No pleural effusions. No pneumothorax. Old, healed left rib fractures. IMPRESSION: No acute process. Electronically signed by: Elfego Varela M.D. 05/25/2016 7:30 AM
[2016-05-25 07:38] LABS: ESTIMATED AVERAGE GLUCOSE 88 mg/dl; HA1C FLAG Normal (Normal)
[2016-05-25 08:00] VITALS: O2SAT 99
[2016-05-25 09:00] VITALS: BP 124/68; PULSE 105; O2SAT 96
[2016-05-25] MEDS ORDERED: SYMIN INH (09:10)
[2016-05-25] MEDS ORDERED: MONT1TAB3 PO (09:11)
[2016-05-25] MEDS ORDERED: METH4PAK PO (09:11)
[2016-05-25] MEDS ORDERED: VNTHFA/IN INH (09:11)
--- NOTE | 2016-05-25 09:14 | Discharge Instructions ---
Discharge Instructions Admission Reason for Admission: Acute Respiratory Failure Requiring Reintubation Discharge Discharge Diagnosis / Problem: ASTHMA EXACERBATION Discharge Goals Goal(s): Increase independence, Improve disease control, Diagnostic testing, Therapeutic intervention Activity Recommendations Activity Limitations: per Instructions/Follow-up section Exercise/Sports Limitations: until after follow-up appointment AVOID FUMES . Instructions / Follow-Up Instructions / Follow-Up . . follow up PCP and pulmonary 2 weeks start albuterol as needed for Shortness of breath start symbicort twice a day and singulair daily finish oral steroid taper as directed . . Current Hospital Diet Patient's current hospital diet: Full Liquid Diet Discharge Diet Recommended Diet: Regular Diet Procedures Procedures Performed: intubation Pending Studies Studies pending at discharge: no Laboratory Results Hemoglobin A1c Test 05/24/16 09:05 Range/Units Estimated Average Glucose 88 mg/dl Hemoglobin A1c 4.7 4.5-5.6 % Medical Emergencies . Who to Call and When: Medical Emergencies: If at any time you feel your situation is an emergency, please call 911 immediately. . Non-Emergent Contact Non-Emergency issues call your: Primary Care Provider, Bmet . Past History Medical & Surgical History: (1) Asthma (2) Bronchitis . "Provider Documentation" section prepared by Beto Mayer. VTE Core Measure Inpt VTE Proph given/why not?: Enoxaparin (Lovenox)SQ, SCD's
--- NOTE | 2016-05-25 09:23 | Discharge Summary ---
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 Medication Reconciliation New Medications: Albuterol Hfa (Ventolin Hfa) 200 Puffs/07345 Mcg Aers 2-4 PUFFS INH Q6H PRN for SOB/Wheezing, #1 INHALER 4 Refills Budesonide/Formoterol Fumarate (Symbicort 160-4.5 Mcg/Act) 60 Puffs/Inhaler Aero 1 PUFFS INH BID, #1 EA 3 Refills Methylprednisolone (Medrol Dosepak) 4 Mg Crow 1 EA PO DAILY, #1 PKT Montelukast Sodium (Singulair) 10 Mg Tab 1 TAB PO DAILY for 90 Days, #90 TAB 3 Refills Continued Medications: Cetirizine (Zyrtec) 10 Mg Tab 10 MG PO DAILY PRN for Nasal Congestion, TAB Fluticasone Propionate (Fluticasone Propionate) 120 Sprays/6000 Mcg Inha 2 SPRAYS NA DAILY for 30 Days, INHA Levofloxacin (Levaquin) 500 Mg Tab 500 MG PO DAILY@11 for 5 Days, TAB Pantoprazole (Pantoprazole Sodium) 40 Mg Tab 40 MG PO QAM for 30 Days, TAB Discontinued Medications: Salmeterol Xinafoate Inh (Serevent Diskus Inh) Inh 1 PUFF INH DAILY, #1 INHALER Referrals At Discharge Follow up Referrals: Physician Referral - Within 2 Weeks with [facility] [place] Advertising Executive Referral - Within 2 Weeks with [facility] [place] Discharge Exam Review of Systems: Constitutional: No chills ENT: No unusual epistaxis Respiratory: No sputum Cardiovascular: No orthopnea Genitourinary - Male: No hematuria, No urinary frequency Neurologic: No memory loss, No weakness Endocrine: No fatigue Hematologic / Lymphatic: No abnormal bleeding/bruising Physical Exam: General Appearance: WD/WN, no apparent distress Eyes: normal inspection, EOMI ENT: hearing grossly normal, pharynx normal Neck: supple, no JVD Respiratory/Chest: lungs clear, no respiratory distress Cardiovascular: no edema, no JVD Abdomen / GI: non tender, soft Extremities: normal inspection, normal capillary refill Neurologic/Psychiatric: no motor/sensory deficits, normal mood/affect Skin: normal color, warm/dry Hospital Course A 30 yo male comes with acute sob 1. Acute hypercapnic respiratory failure due to possible asthma. intubated on admission and extubated yesterday, doing great need to follow up with [facility] pulm and PCP 1-2 weeks d/c on steroids taper he already got a script for po levaquin for bronchitis start inh symbicort and singulair given a script for albuterol rescue inhaler CT head is negative CT chest/abd is negative 2. Acute kidney injury, improved with IVF 3. Mildly elevated CPK, likely dehydration.improved 4. questionable upper gastrointestinal bleed? has NG tube with Coffee ground looking material, resolved, d/c on PPI 5. Hyperglycemia likely secondary to stress, a1c 4.7 d/c home, f/u PCP and pulm 2 weeks Total Time Spent: Greater than 30 minutes This includes examination of the patient, discharge planning, medication reconciliation, and communication with other providers. Discharge Instructions Please refer to the electronic Patient Visit Report (Discharge Instructions) for additional information.
[2016-05-25] MEDS ORDERED: PRLSR20 PO (09:24)
[2016-05-25 10:00] VITALS: BP 105/74; PULSE 94; O2SAT 94
--- NOTE | 2016-05-25 11:16 | Medical Student: [facility] ---
Med Student Progress Note Date of Service May 25, 2016. Subjective Pt evaluation today including: conversation w/ patient, physical exam, chart review, lab review, review of studies Voiding: no voiding problems Pt is a 30 year old male with a history of asthma who is admitted for acute respiratory failure requiring intubation. He self extubated yesterday and has been doing well since then on 3 L O2 nasal cannula. He reports feeling much better but still with some mild chest tightness and difficulty taking a deep breath. History was limited when the pt presented to the ED secondary to his respiratory distress. He states that he was off of all inhalers for 14 months and was doing fine until early April, when he started having some wheezing and chest tightness. He then started using his albuterol inhaler again 1-2 times per day, in addition to Singulair 5 mg daily. He states that on 05/23 he started having significantly worse chest tightness and dyspnea despite using his albuterol inhaler q2-3h, which prompted him to call 911. He does not smoke and denies any recent exposures that could have incited the symptoms. He believes that it could have been related to cold air. He denies any recent cough or illness. He has been admitted for asthma once in the past in November 2013 , but he had never been intubated prior to this admission. He has not been on steroids since his last admission. Review of Systems Respiratory: + see HPI Cardiac: No chest pain Abdomen: No pain All Other Systems: Reviewed and Negative Objective Vital Signs Date Time Temp Pulse Resp B/P Pulse Ox O2 Delivery O2 Flow Rate FiO2 05/25/16 09:00 105 18 124/68 96 Nasal Cannula 3.0 05/25/16 08:00 99 Mask 05/25/16 07:15 113 16 97 Mask 40 05/25/16 04:00 Humidified Oxygen 40 05/25/16 02:20 104 16 97 Mask 50 05/25/16 00:01 Humidified Oxygen 50 05/24/16 21:28 89 23 106/53 96 05/24/16 20:58 82 11 110/63 96 05/24/16 20:41 100 16 98 Mask 50 05/24/16 20:28 88 18 108/53 95 05/24/16 20:00 Humidified Air 50 05/24/16 19:58 36.7 104 19 125/73 96 05/24/16 19:29 113 17 118/65 95 05/24/16 19:00 118 17 133/65 96 05/24/16 18:29 111 24 125/75 95 05/24/16 17:59 95 9 113/58 99 05/24/16 17:29 113 11 100/59 98 05/24/16 16:59 50 05/24/16 16:29 98 15 125/76 97 05/24/16 16:00 Mechanical Ventilator 50 05/24/16 16:00 50 05/24/16 15:59 119 14 120/78 94 05/24/16 15:28 75 17 94/50 96 05/24/16 14:58 81 17 96/58 96 05/24/16 14:28 100 27 106/57 95 05/24/16 14:24 50 05/24/16 13:58 79 17 89/50 96 05/24/16 13:28 83 16 97/51 100 05/24/16 12:28 85 25 81/42 96 05/24/16 12:00 36.9 05/24/16 12:00 50 05/24/16 12:00 Mechanical Ventilator 50 05/24/16 11:28 85 19 89/46 97 Physical Exam General Appearance: WD/WN, no apparent distress (Pt is sitting up in bed watching TV. Nasal cannula in place, 3 L O2 with SpO2 95%. Pt is able to speak in full sentences. ) Eyes: bilateral eyes EOMI, bilateral eyes PERRL ENT: hearing grossly normal Respiratory/Chest: chest non-tender, no respiratory distress, no accessory muscle use, + wheezing (Mild diffuse inspiratory and expiratory wheezing. No rales or rhonchi. ) Cardiovascular: no edema, no gallop, no murmur, + tachycardia Abdomen: normal bowel sounds, non tender, soft, no organomegaly, no pulsatile mass Extremities: no pedal edema, no calf tenderness, normal capillary refill Neurologic/Psychiatric: no motor/sensory deficits, alert, normal mood/affect, oriented x 3 Skin: normal color, warm/dry, no rash Laboratory Results Last 24 Hours Test 05/24/16 11:08 05/24/16 11:24 05/24/16 16:15 05/24/16 18:05 Hemoglobin 15.2 g/dL 15.7 g/dL Hematocrit 43.0 % 45.2 % Lactic Acid Level 4.6 mmol/L Bedside Glucose 120 mg/dl 121 mg/dl Total Creatine Kinase 638 U/L Test 05/24/16 22:04 05/24/16 23:17 05/25/16 03:45 Hemoglobin 14.4 g/dL 14.2 g/dL Hematocrit 41.7 % 41.0 % Bedside Glucose 155 mg/dl White Blood Count 19.40 K/uL Red Blood Count 4.40 M/uL Mean Corpuscular Volume 93.2 fL Mean Corpuscular Hemoglobin 32.3 pg Mean Corpuscular Hemoglobin Concent 34.6 g/dl Platelet Count 253 K/uL Mean Platelet Volume 9.9 fL Neutrophils (%) (Auto) 92.8 % Lymphocytes (%) (Auto) 4.1 % Monocytes (%) (Auto) 2.7 % Eosinophils (%) (Auto) 0.0 % Basophils (%) (Auto) 0.1 % Neutrophils # (Auto) 18.01 K/uL Lymphocytes # (Auto) 0.79 K/uL Monocytes # (Auto) 0.53 K/uL Eosinophils # (Auto) 0.00 K/uL Basophils # (Auto) 0.01 K/uL RDW Standard Deviation 43.7 fL RDW Coefficient of Variation 12.9 % Immature Granulocyte % (Auto) 0.3 % Immature Granulocyte # (Auto) 0.06 K/uL Sodium Level 144 mmol/L Potassium Level 4.0 mmol/L Chloride Level 109 mmol/L Carbon Dioxide Level 26 mmol/L Anion Gap 9.0 mmol/L Blood Urea Nitrogen 14 mg/dl Creatinine 1.10 mg/dl Est Creatinine Clear Calc Drug Dose 97.3 ml/min Estimated GFR () 103.1 Estimated GFR (Non- 89.0 BUN/Creatinine Ratio 12.7 Random Glucose 136 mg/dl Calcium Level 7.9 mg/dl Phosphorus Level 2.1 mg/dl Magnesium Level 2.4 mg/dl Total Creatine Kinase 854 U/L Assessment and Plan Assessment and Plan: Pt is a 30 year old male with a history of asthma who is admitted for acute respiratory failure requiring intubation. 1. Acute hypercapnic respiratory failure due to possible asthma. - He self extubated yesterday and has been doing well since then on 3 L O2 nasal cannula with SpO2 of 95%. After removing the nasal cannula for 5-10 minutes, his SpO2 remained at 94-95%. Will d/c nasal cannula. - Blood cultures are negative and CXR shows no acute process. Will d/c ceftriaxone and levofloxacin. - Will plan for discharge today with rescue inhalers, Singulair, and prednisone taper. 2. Acute kidney injury - Creatinine has improved from 1.7 to 1.1 with IVF. 3. Mildly elevated CPK, likely dehydration. 4. Hyperglycemia - likely secondary to stress and IV steroids. 5. Tachycardia - likely secondary to inhalers and stress. DVT prophylaxis with subcutaneous heparin. Discharge planning: home
[2016-05-25] MEDS ORDERED: PANTOprazole SOD 40 MG TAB PO SCH (12:00)
[2016-05-25 12:08] VITALS: BP 105/74; PULSE 94; O2SAT 94
[2016-05-31 23:12] LABS: HYDROXYETHYLFLURAZEPAM CONF NEGATIVE NG/ML (CUTOFF=50); HYDROXYMIDAZOLAM NEGATIVE NG/ML (CUTOFF=50); HYDROXYTRIAZOLAM CONF NEGATIVE NG/ML (CUTOFF=50); TEMAZEPAM CONF NEGATIVE NG/ML (CUTOFF=50)
== END 2016-05-25 12:33 | disposition home or self-care (01) | DRG 208 ==
LOC: ENRESERVDT → CANRESERV → ENRESERVTM → EDBD 03:07 → C.ED 03:07 → C.MSICU 04:39 → MERGE 04:39
PROVIDERS: ADMIT Hospitalist; ATTEND Hospitalist
PROC: 0BH17EZ Insertion of Endotracheal Airway into Trachea, Via Natural or Artificial Opening (ICD-10-PCS; principal; 2016-05-24)
PROC: 5A1935Z Respiratory Ventilation, Less than 24 Consecutive Hours (ICD-10-PCS; principal; 2016-05-24)
DX: J96.02 Acute respiratory failure with hypercapnia (principal); N17.9 Acute kidney failure, unspecified; K92.2 Gastrointestinal hemorrhage, unspecified; J45.901 Unspecified asthma with (acute) exacerbation; R41.82 Altered mental status, unspecified; E86.0 Dehydration; R31.29 Other microscopic hematuria; D72.829 Elevated white blood cell count, unspecified; R74.8 Abnormal levels of other serum enzymes; R73.9 Hyperglycemia, unspecified; T38.0X5A Adverse effect of glucocorticoids and synthetic analogues, initial encounter; Z57.5 Occupational exposure to toxic agents in other industries